=== PATIENT | male | born 1955 | race Caucasian/White ===

== ENCOUNTER 2017-07-04 10:44 | Outpatient (CLI) | payer OTHER ==
[2017-07-04 11:32] LABS: #Basophils 0.1 thou/uL (0.0-0.2); #Eosinphils 0.4 thou/uL (0.0-0.7); #Lymphocytes 1.1 thou/uL (1.20-3.40); #Monocytes 0.5 thou/uL (0.11-0.59); #Neutrophils 2.5 thou/uL (1.40-6.50); %Basophils 1.2 % (0.0-1.0); %Eosinophils 7.8 % (0.0-10.0); %Lymphocytes 24.7 % (21.0-51.0); %Monocytes 10.7 % (0.0-10.0); %Neutrophils 55.5 % (42.0-75.0); Hemoglobin 15.9 g/dL (14.0-18.0); Mean Corpuscular HGB CONC 32.3 g/dL (32.0-36.0); Mean Corpuscular Hemoglobin 29.5 pg (27.0-31.0); Mean Corpuscular Volume 91.4 fl (80.0-94.0); Mean Platelet Volume 7.2 fL (7.4-10.4); Platelet Count 207 thou/uL (130-400); RBC Distribution Width 12.4 % (11.5-14.5); Red Blood Cell (RBC) Count 5.39 mill/uL (4.70-6.10); White Blood Cell (WBC) Count 4.5 thou/uL (4.8-10.8)
[2017-07-04 11:59] LABS: Anion Gap 14 mmol/L (10-20); BUN (Urea Nitrogen) 9 mg/dL (8.4-25.7); Calc. Creatinine Clearance 0 mL/min (70-130); Calcium 9.4 mg/dL (7.8-10.44); Carbon Dioxide 25 mmol/L (23-31); Chloride 103 mmol/L (98-107); Estimated GFR-MDRD 80; Glucose 97 mg/dL (80-115); Potassium 4.5 mmol/L (3.5-5.1); Sodium 137 mmol/L (136-145)
--- NOTE | 2017-07-04 23:45 | EKG ---
Test Reason : Blood Pressure : / mmHG Vent. Rate : 062 BPM Atrial Rate : 062 BPM P-R Int : 130 ms QRS Dur : 096 ms QT Int : 412 ms P-R-T Axes : 047 068 057 degrees QTc Int : 418 ms Normal sinus rhythm Normal ECG When compared with ECG of 22-JAN-2015 09:51, No significant change was found Confirmed by Dipti MENSAH ([id number]) on 07/04/2017 11:45:24 PM Referred By: CARY Confirmed By:Dipti MENSAH
== END 2017-07-04 10:45 | disposition home or self-care (01) ==
LOC: LABBT 10:44
PROVIDERS: ATTEND Specialist
DX: Z01.810 Encounter for preprocedural cardiovascular examination (principal); Z01.812 Encounter for preprocedural laboratory examination; K40.90 Unilateral inguinal hernia, without obstruction or gangrene, not specified as recurrent
CPT/HCPCS: 80048; 85025; 93005; 93010

== ENCOUNTER 2017-07-05 06:57 | Day surgery (SDC) | payer OTHER ==
[2017-07-04 10:51] VITALS: BMI 27.5
--- NOTE | 2017-07-04 11:57 | HP ---
HISTORY OF PRESENT ILLNESS: Bora Mike is a 62-year-old male patient who I have seen in the [facility] t for a laparoscopic appendectomy. I performed the same procedures on his . The patient reports a right inguinal hernia enlarging, bothersome and has some discomfort in his left groin and suspects he has a left inguinal hernia. Exam reveals bilateral inguinal hernias. After thorough discussion the plan is to performed bilateral inguinal hernia repairs with mesh as an outpatient. I have discus sed the use of mesh, risk and benefits and the approach open versus robotic and laparoscopic. He con sents. He understands the risks of infection, bleeding, reoperation, recurrence of hernia, chronic p ain issues and questions answered. ALLERGIES: None. TOBACCO: None. ALCOHOL: Rarely. MEDICATIONS: Cialis daily prescribed post-prostatectomy. PAST SURGICAL HISTORY: Laparoscopic appendectomy in 2009, lumbar surgery outpatient 2012 minimally i nvasive, robotic prostatectomy [facility] in February 2017. He has had a colonoscopy in the past and probably is due next year. PAST MEDICAL HISTORY: He has a history of elevated cholesterol, although medications discontinued an d he is in good control with diet. He has had atrial fibrillation, had an ablation in 2010 resolving his atrial fibrillation, he had a cardiac workup at that time. His cardiac workup was negative for ischemic disease. REVIEW OF SYSTEMS: Ten point noncontributory. PHYSICAL EXAMINATION: VITAL SIGNS: Blood pressure 137/87, 67, 99 degrees, 231 pounds, 6 foot 3 inches. HEENT: Unremarkable. LUNGS: Clear to auscultation. CARDIAC: Regular rate and rhythm without murmur or gallop. ABDOMEN: Soft, nontender. EXTREMITIES: Unremarkable. : Bilateral inguinal hernias on standing, enlarges on Valsalva, right greater than left. Testicle s normal. ASSESSMENT AND PLAN: Bilateral inguinal hernias. Plan repair using mesh. Risks and benefits as dis cussed above.
[2017-07-05] MEDS ORDERED: CEFAZOLIN/Water 2 GM/20 ML SYRINGE ONE (07:37)
[2017-07-05] MEDS ORDERED: Ketorolac Tromethamine 30 MG/ML VIAL ONE (07:38)
[2017-07-05] MEDS ORDERED: Bupivacaine 0.25% HCL 30 ML VIAL ONE (08:43)
[2017-07-05] MEDS ORDERED: Lidocaine 1% w/Epinephrine 1:200K 30 ML VIAL ONE (08:43)
[2017-07-05] MEDS ORDERED: Fentanyl 100 MCG/2 ML VIAL ONE (09:04)
--- NOTE | 2017-07-05 15:38 | OP ---
DATE OF PROCEDURE: 07/05/2017 PREOPERATIVE DIAGNOSIS: Bilateral inguinal hernias. POSTOPERATIVE DIAGNOSIS: Bilateral indirect inguinal hernias. PROCEDURE: PHS mesh repair of bilateral indirect inguinal hernias. SURGEON: Maynor Davison M.D. ANESTHESIA: General. Local 0.25% Marcaine was 30 mL, mixed with 1% Xylocaine with epinephrine, 15 m L mixture 45 mL used each side. PROCEDURE IN DETAIL: The patient was taken to the operating room where under general anesthesia, abd omen was clipped of hair, prepared with ChloraPrep, draped in routine fashion. Ioban was used. Inci yanni was first begun on the right and made down through skin and subcutaneous tissue after performing an ilioinguinal nerve block on both sides. Local anesthetic infiltrated into skin and subcutaneous tissue about each incision. Incision made on the right and carried down through the skin and subcuta neous tissue. The external oblique, incising it in the direction of its fibers to the external ring and divided the ilioinguinal nerve and dissecting the cord structures surrounded with a Calypso drain . Cremasteric fibers were taken down. There was a large lipoma of the cord dissected free, excised with cautery. Good hemostasis noted. Hernia sac large identified, dissected free, opened under dire ct visualization, highly ligated with pursestring suture of 0 Nurolon to the stump of the hernia sac, underlay portion of the PHS mesh secured with 0 Nurolon suture and high excision of hernia sac perfo rmed on lay portion of the mesh placed in the preperitoneal space, onlay portion of the floor of the canal, placing the extended portion high in the inguinal canal. Incision made and the mesh laterally to the cylindrical connecting ring brought around the cord structures creating a synthetic internal ring secured back to itself to Poupart's ligament with 0 Nurolon. Mesh secured to Boogie's ligament with 0 Nurolon. Inferiorly, the mesh secured laterally to Poupart's ligament with 0 Nurolon. Good h emostasis noted. Good hernia repair noted. Calypso drain removed and there was adequate room for th e synthetic internal ring for passage of the cord structures. The external oblique closed with maryam nuous suture of 3-0 Monocryl, Camper's with 3-0 Monocryl, skin with subdermal 4-0 Monocryl and local anesthetic mixture infiltrated in the space of the inguinal canal and was placed below Camper's fasci a and the remaining skin and subcutaneous tissue, DermaGlue applied. Attention was then turned to the left side. Repair of the left inguinal hernia was performed, it was exactly described for the right except the hernia sac was smaller. This correlated with clinical ex am and history. Lipoma of the cord excised. Excision and ligation of hernia sac performed and the m esh secured as described for the right and wound closed on the left as described with local anestheti c infiltrated in the spaces and as described for the right. Patient tolerated the procedure well.
== END 2017-07-05 12:55 | disposition home or self-care (01) ==
LOC: SDC 06:57
PROVIDERS: ATTEND Specialist
PROC: 0YUA0JZ Supplement Bilateral Inguinal Region with Synthetic Substitute, Open Approach (ICD-10-PCS; principal; 2017-07-05)
DX: K40.20 Bilateral inguinal hernia, without obstruction or gangrene, not specified as recurrent (principal); E78.00 Pure hypercholesterolemia, unspecified; I48.91 Unspecified atrial fibrillation; Z79.899 Other long term (current) drug therapy; Z91.048 Other nonmedicinal substance allergy status; Z90.49 Acquired absence of other specified parts of digestive tract; Z90.79 Acquired absence of other genital organ(s); Z98.52 Vasectomy status; Z98.890 Other specified postprocedural states
CPT/HCPCS: C1781; J0131; J1885; J3010; S0020

== ENCOUNTER 2017-12-14 13:04 | Outpatient (CLI) | payer OTHER ==
--- NOTE | 2017-12-14 13:37 | CT ---
NONCONTRAST ENHANCED CT CHEST: Date: 12/14/17 COMPARISON: Previous exam from 03/29/16. FINDINGS: Noncontrast enhanced CT of the chest is performed. There is an approximately 7.0 mm well circumscribed nodule in the right upper lobe, unchanged since t he previous comparison exam. No significant evidence of mediastinal or axillary lymphadenopathy seen. No evidence of newly developed pulmonary parenchymal lesions seen. The right upper lobe lesion is sta ble. Hypodense areas seen in the liver, most compatible with hepatic cysts, unchanged since the previous e xam. IMPRESSION: Stable CT appearance of the chest, not significantly changed. POS: C
== END 2017-12-14 13:05 | disposition home or self-care (01) ==
LOC: SCSCT 13:04
PROVIDERS: ATTEND Family Medicine
DX: R91.1 Solitary pulmonary nodule (principal)
CPT/HCPCS: 71250

== ENCOUNTER 2021-08-02 12:47 | Outpatient (CLI) | payer MEDICARE | END 2021-08-02 12:48 | disposition home or self-care (01) | LOC: ULT 12:47 | PROVIDERS: ATTEND Urology | DX: N50.82 Scrotal pain (principal); Z85.45 Personal history of malignant neoplasm of unspecified male genital organ | CPT/HCPCS: 76870; 93976 ==